=== PATIENT | female | born 1980 | race Caucasian/White ===

== ENCOUNTER → 2018-02-01 07:12 | Outpatient (CLI) | payer OTHER, SELFPAY ==
--- NOTE | 2018-02-01 07:16 | DI.US.S_ITS ---
PROCEDURE: US OB <= 14 WEEKS FETUS INDICATIONS: SIZE AND DATES OUTSIDE/PRIOR DATING DATA: Last menstrual period (LMP): 12/14/17. LMP-based estimated date of delivery (CUCO): 09/20/18. First dating scan (date and location): 02/08. Estimated date of delivery (CUCO) from first dating scan: 09/23/18. TECHNIQUE: Real-time scanning was performed of the fetus and maternal pelvic organs, with image documentation. Endovaginal scanning was also performed to better visualize the fetus and maternal ovaries. COMPARISON: None. FINDINGS: Embryo: Single living fetus is present with a crown-rump length 0.66 centimeter, 6 weeks 4 days. heart rate measures 115 beats. Measurement variability in dating: +/- 4 weeks by LMP, +/- 7 days by mean sac diameter (use before 6 weeks gestation if crown-rump length not able to be measured), +/- 5 days by crown-rump length (up to 8 weeks 6 days gestation), +/- 7 days by crown-rump length (up to 13 weeks 6 days gestation). Maternal organs: Ovaries unremarkable except for a presumed left corpus luteum. Limited images through the kidneys demonstrate no hydronephrosis. IMPRESSION: Single living intrauterine fetus with a gestational age of 6 weeks and 4 days by today's ultrasound measurements corresponding to an CUCO of 09/23/18, concordant with LMP as above Dictated by: Mesfin Kathleen M.D. on 02/01/2018 at 9:05 Approved by: Mesfin Kathleen M.D. on 02/01/2018 at 9:08
== END ==
PROVIDERS: Visit Provider Family Medicine
DX: Z34.92 Encounter for supervision of normal pregnancy, unspecified, second trimester (principal); Z3A.01 Less than 8 weeks gestation of pregnancy
CPT/HCPCS: 76801; 76817

== ENCOUNTER → 2018-05-08 07:19 | Outpatient (CLI) | payer OTHER, SELFPAY ==
--- NOTE | 2018-05-08 | DI.US.S_ITS ---
PROCEDURE: US OB >= 14 WEEKS FETUS INDICATIONS: SIZING OUTSIDE/PRIOR DATING DATA: Last menstrual period (LMP): 12/14/17. LMP-based estimated date of delivery (CUCO): 09/20/18. First dating scan (date and location): 02/01/18. Estimated date of delivery (CUCO) from first dating scan: 09/23/18, plus or -5 days. TECHNIQUE: Real-time scanning was performed of the fetus, with image documentation and biometric measurements. Endovaginal scanning: Not needed for this study COMPARISON: 02/01/18 OB ultrasound. FINDINGS: General: A single living intrauterine gestation is present. Presentation: Vertex. Placenta: Placental position is anterior, without previa. Amniotic fluid index: 15.2 cm, normal range is 5-24 cm. heart rate: 157 beats per minute. Maternal cervical canal: 3.3 cm long. Normal lower limit is 2.5 cm. biometrics: Biparietal diameter: 4.7 cm, 20 weeks 1 day Head circumference: 18.6 cm, 21 weeks 0 days Abdominal circumference: 15.8 cm, 20 weeks 6 days Femur length: 3.2 cm, 20 weeks 0 days Estimated gestational age from initial scan: 20 weeks 2 days Composite gestational age from present scan: 20 weeks 4 days Estimated weight and percentile: 362 g, 61st percentile Measurement variability for biometric dating: +/- 7 days from 14 weeks to 15 weeks 6 days gestation, +/- 10 days from 16 weeks to 21 weeks 6 days gestation, +/- 2 weeks from 22 weeks to 27 weeks 6 days gestation, +/- 3 weeks for 28 weeks gestation or later. weight reference: 4500 g or EFW >90/95% is considered macrosomia or large for gestational age. EFW <10% is small for gestational age. EFW 5% or less is considered intra-uterine growth restriction. Anatomic survey: Neuro: Ventricles are non-dilated at less than 10 mm. Cisterna magna is normal at 3-11 mm. Cerebellum is normal in size and morphology. Nuchal skin fold: Normal at less than 6 mm between 14-21 weeks gestational age. Face: Nose and lips, facial profile are normal. Spine: No evidence for spina bifida. Heart: 4-chambered heart is present, with normal ventricular outflow tracts. Diaphragm: Diaphragm is intact. Stomach: Left-sided stomach is present. Kidneys: No hydronephrosis. Normal is less than 5 mm in 2nd trimester, less than 7 mm in 3rd trimester. Cord: 3-vessel cord has orthotopic insertion. Bladder: Normal in size. Extremities: All 4 extremities identified. IMPRESSION: Appropriate interval growth, no anomaly seen. The delivery date is projected to be centered on 09/23/18, plus or -5 days. Dictated by: Saulo Rebollar M.D. on 05/08/2018 at 8:46 Approved by: Saulo Rebollar M.D. on 05/08/2018 at 8:49
== END ==
PROVIDERS: Visit Provider Family Medicine
DX: Z36.89 Encounter for other specified antenatal screening (principal); Z3A.20 20 weeks gestation of pregnancy
CPT/HCPCS: 76811

== ENCOUNTER 2018-08-14 07:18 | Outpatient (CLI) | payer OTHER, SELFPAY ==
--- NOTE | 2018-08-14 | DI.US.S_ITS ---
PROCEDURE: US OB LIMITED INDICATIONS: WEIGHT/GROWTH OUTSIDE/PRIOR DATING DATA: Last menstrual period (LMP): 12/14/17. LMP-based estimated date of delivery (CUCO): 09/20/18. First dating scan (date and location): 02/01/18. Estimated date of delivery (CUCO) from first dating scan: 09/23/18, plus or -5 days. TECHNIQUE: Real-time scanning was performed of the fetus, with image documentation. Endovaginal scanning: Not needed for this study. COMPARISON: Prior OB ultrasound studies from 02/01/18 and 05/08/18 were reviewed.. FINDINGS: A single living intrauterine gestation is present. Presentation: Vertex. Placenta: Placental position is fundal anterior, without previa. Amniotic fluid index: 13.0 cm, normal range is 5-24 cm. heart rate: 140 beats per minute. Maternal cervical canal: 3.7 cm long. Normal lower limit is 2.5 cm. Estimated gestational age from initial scan: 34 weeks 2 days. BIOMETRY: Prior study from 05/08/18 had shown normal biometry. The current study shows BPD 8.5 cm that correlates with 34 weeks 1 day gestational age and the head circumference of 32.7 cm correlates with 37 weeks 1 day. Abdominal circumference 28.7 cm correlates with 32 weeks 5 days and the femur length of 6.5 cm correlates with 33 weeks 4 day gestational age. The composite gestational age from today is 34 weeks 3 days and the expected age is 34 weeks 2 days. There has been appropriate interval growth. The current estimated weight is 2214 g, at the 23rd percentile for current gestational age. IMPRESSION: Vertex presentation, normal amniotic fluid, appropriate interval growth in terms of the gestational age from initial and subsequent OB ultrasound studies from 02/01/18 and 05/08/18, respectively. The delivery date remains projected to be centered on 09/23/18, plus or -5 days. The prior ultrasound from 05/08/18 had projected the weight to be at the 61st percentile for current gestational age at that time. The current study shows the weight to be estimated at the 23rd percentile at this time. With reference to the individual components of the biometry the abdominal circumference is somewhat reduced. Measurement variability at this stage of it is plus or -3 weeks (with the most accurate measurement from the first OB ultrasound). A followup biometry assessment likely is warranted given the relatively low abdominal circumference when compared to the prior original biometry from April of last year, in approximately 2 weeks. Dictated by: Saulo Rebollar M.D. on 08/14/2018 at 9:37 Approved by: Saulo Rebollar M.D. on 08/14/2018 at 9:55
== END 2018-08-14 17:23 | disposition home or self-care (01) ==
LOC: US 07:18
PROVIDERS: PCP Family Medicine; Visit Provider Family Medicine
DX: Z34.93 Encounter for supervision of normal pregnancy, unspecified, third trimester (principal); Z3A.34 34 weeks gestation of pregnancy
CPT/HCPCS: 59025; 76815; G0378

== ENCOUNTER 2018-08-21 17:14 | Outpatient (CLI) | payer OTHER, SELFPAY | END 2018-08-21 17:55 | disposition home or self-care (01) | LOC: OB 08-22 11:18 | PROVIDERS: PCP Family Medicine; Visit Provider Family Medicine | DX: O24.419 Gestational diabetes mellitus in pregnancy, unspecified control (principal); Z3A.35 35 weeks gestation of pregnancy | CPT/HCPCS: 59025; G0378; G0379 ==

== ENCOUNTER → 2018-08-24 09:49 | Outpatient (REF) | payer OTHER, SELFPAY | LOC: LAB 09:49 | PROVIDERS: PCP Family Medicine; Visit Provider Family Medicine | DX: Z34.80 Encounter for supervision of other normal pregnancy, unspecified trimester (principal) | CPT/HCPCS: 87081; 87147 ==

== ENCOUNTER 2018-08-28 17:18 | Outpatient (CLI) | payer OTHER, SELFPAY | END 2018-08-28 17:57 | disposition home or self-care (01) | LOC: LABOR 17:57 → OB 08-29 14:56 | PROVIDERS: PCP Family Medicine; Visit Provider Family Medicine | DX: O24.419 Gestational diabetes mellitus in pregnancy, unspecified control (principal); Z3A.36 36 weeks gestation of pregnancy | CPT/HCPCS: 59025; G0378; G0379 ==

== ENCOUNTER 2018-09-04 17:18 | Outpatient (CLI) | payer OTHER, SELFPAY | END 2018-09-04 18:02 | disposition home or self-care (01) | LOC: OB 09-05 11:45 | PROVIDERS: PCP Family Medicine; Visit Provider Family Medicine | DX: O24.419 Gestational diabetes mellitus in pregnancy, unspecified control (principal); Z3A.37 37 weeks gestation of pregnancy | CPT/HCPCS: 59025; G0378; G0379 ==

== ENCOUNTER 2018-09-11 17:21 | Outpatient (CLI) | payer OTHER, SELFPAY | END 2018-09-11 17:50 | disposition home or self-care (01) | LOC: OB 09-12 14:52 | PROVIDERS: PCP Family Medicine; Visit Provider Family Medicine | DX: O24.419 Gestational diabetes mellitus in pregnancy, unspecified control (principal); Z3A.38 38 weeks gestation of pregnancy | CPT/HCPCS: 59025; G0378; G0379 ==

== ENCOUNTER → 2018-09-20 07:21 | Outpatient (CLI) | payer OTHER, SELFPAY ==
--- NOTE | 2018-09-20 | DI.US.S_ITS ---
PROCEDURE: US OB LIMITED INDICATIONS: GESTATIONAL DIABETES OUTSIDE/PRIOR DATING DATA: Last menstrual period (LMP): 12/14/17. LMP-based estimated date of delivery (CUCO): 09/20/18. First dating scan (date and location): 02/01/18. Estimated date of delivery (CUCO) from first dating scan: 09/23/18. TECHNIQUE: Real-time scanning was performed of the fetus, with image documentation. COMPARISON: [facility], , OB LIMITED, 08/14/2018, 7:25. FINDINGS: A single living intrauterine gestation is present. Presentation: Vertex. Placenta: Placental position is anterior, without previa. Amniotic fluid index: 9.2 cm, normal range is 5-24 cm. heart rate: 175 beats per minute. Maternal cervical canal: Not measured Estimated gestational age from initial scan: 39 weeks 4 days Composite gestational age today 37 weeks 6 days The estimated weight 332 g 31st percentile BPD: 9.0 cm 36 weeks 2 days HC: 33.4 cm 38 weeks 2 days AC: 33.5 cm 37 weeks 3 days FL.: 7.7 cm 39 weeks 3 days IMPRESSION: 1. Single intrauterine with ultrasound CUCO 09/23/18. 2. weight is at the 31st percentile. 3. Expected normal interval growth. Dictated by: Flori Mcknight M.D. on 09/20/2018 at 9:42 Approved by: Flori Mcknight M.D. on 09/20/2018 at 9:45
== END ==
PROVIDERS: PCP Family Medicine; Visit Provider Family Medicine
DX: O24.419 Gestational diabetes mellitus in pregnancy, unspecified control (principal); Z3A.37 37 weeks gestation of pregnancy
CPT/HCPCS: 59025; 76815; 84112

== ENCOUNTER 2018-09-20 07:49 | Outpatient (CLI) | payer OTHER, SELFPAY | END 2018-09-20 08:45 | disposition home or self-care (01) | LOC: LABOR 08:16 → OB 12:57 | PROVIDERS: PCP Family Medicine; Visit Provider Family Medicine | DX: O24.419 Gestational diabetes mellitus in pregnancy, unspecified control (principal) | CPT/HCPCS: 59025; 84112; G0378; G0379 ==

== ENCOUNTER 2018-09-25 00:42 | Inpatient (IN) | payer OTHER, SELFPAY ==
[2018-09-25 00:46] VITALS: BP 139/89
[2018-09-25] MEDS: PENICILLIN G POTASSIUM 5,000,000 UNIT in DEXTROSE 5% IN WATER 250 ML IV (01:30)
[2018-09-25] MEDS: LACTATED RINGERS 1,000 ML 100 ML IV (01:30)
[2018-09-25 02:05] LABS: Add Manual Diff / Slide Review NO; Basophils Absolute Auto 100 /uL (0-100); Eosinophils Absolute Auto 100 /uL (0-450); Hematocrit 43.4 % (36-46); Hemoglobin 14.7 g/dL (12.0-16.0); Lymphocytes Absolute Auto 2200 /uL (1100-4500); Mean Corpuscular HGB Conc 33.9 % (30-36); Mean Corpuscular Volume 91.6 fL (80-100); Monocytes Absolute Auto 400 /uL (0-900); Neutrophils Absolute Auto 5300 /uL (1500-7000); Platelet Count 189 X10^3/uL (150-400); Red Blood Cell Count 4.74 X10^6/uL (4.0-5.2); Red Cell Distribution Width 13.9 % (11.6-14.8)
[2018-09-25] MEDS: OXYTOCIN 10 UNIT/ML VIAL IM (03:50)
--- NOTE | 2018-09-25 04:29 | P.PCNOB_ITS ---
Events: Gestational Diabetes Delivery date: 09/25/18 Intrapartal events: Precipitous Labor < 3 hours Cervical ripening method: none Induction method: none Delivery monitor: external FHT and external uterine Route of delivery: L&D Laceration Description: Periurethral - 1st Degree and Perineal - 1st Degree Delivery repair: chromic Estimated blood loss (mL): 250 Anesthesia type: None Complications: meconium Narrative: Identifying data: This is a pleasant 38-year-old at 40 and 2 7 weeks estimated gestational age based on an EDC of 09/23/2018 based on LMP and 1st trimester ultrasound. was complicated by gestational diabetes that was diet controlled and she did excellent job. Patient was GBS positive. Patient was Rh negative and received 1 dose of RhoGAM. Patient presented in active labor. Labor started with spontaneous rupture membranes which occurred 3 hr and 15 min prior to delivery and there was meconium fluid. Stage I lasted 1 hr and 35 min patient presented to labor and delivery at 1:00 a.m. on the date of delivery. Patient was having intermittent contractions that were mild and she was able to sleep through and then had spontaneous rupture of membranes at 12:00 a.m. on the date of delivery. The fluid was meconium stained. She presented to labor and delivery and received 1 dose of IV penicillin at 1:30 a.m.. She began having more painful contractions at approximately 1:30 a.m. and was felt to be in active labor at that time. She had rapid progression and was found to be complete at 3:05 a.m.. External tocometer heart monitor were used throug hout this stage. Baseline heart rate in the 130s and 140s with accelerations and moderate variability representing a category 1 tracing. I was contacted at 3:00 a.m. the patient was 6 cm and then several min later that she was complete. patient tolerated the contractions well and did not have any anesthesia. Stage II: 10 min patient was noted to be complete and pushed approximately 2 pushes and baby was delivered via normal spontaneous vaginal delivery. There was a nuchal cord that was not reduced on the perineum. Baby was placed on mom's chest and at that point approximately 2 min after delivery I arrived. Apgars were 7 at 1 min and 9 at 5 min. Baby was very quiet and was taken to the warmer where heart rate was excellent and tone was excellent and color was excellent and baby was very quiet just not crying but normal respiratory rate and appropriate O2 sat. Baby was then taken back to mom. Stage III: 15 min normal spontaneous vaginal delivery of an intact mildly calcified placenta with a near central cord insertion. Three-vessel cord was present. 10 min use of Pitocin was given IM. There was a very small first-degree perineal laceration and a superior urethral very small 0.5 cm laceration both of which were repaired with 3 0 chromic in usual fashion. At the time of this dictation both mom and baby are in stable condition Plan for aftercare: routine care
[2018-09-25] MEDS: IBUPROFEN 600 MG TABLET PO ×4 (04:30→23:03)
--- NOTE | 2018-09-25 04:39 | P.HPOB_ITS ---
OB HPI History of Present Condition Chief complaint: evaluation of labor Narrative: Christi Alarcon is a 38 year old female at 40 and 2 7 weeks estimated gestational age based on an EDC of 09/23/2018 presents to Labor and delivery with spontaneous rupture membranes of meconium-stained fluid at 12:00 a.m. with irregular mild uterine contractions. Patient has had intermittent contractions that have not been severe and no other concerns. Past medical history is remarkable for 1. hypothyroidism 2. anxiety 3. Depression 4. Cystic fibrosis gene carrier medications: Synthroid sertraline vitamins allergies: No known drug allergies past surgical history 12 ACL repair, right health related behavior: No alcohol, drugs or tobacco past OB history: 1. December 15, 2015 at 42 weeks gestation with premature rupture membranes and Pitocin inducted labor which lasted 10 hr at [facility] normal spontaneous vaginal delivery of a viable male weighing 7 lb 8 oz. No epidural or anesthesia. care was begun early on. LMP 12/14/2017 gave the EDC of 09/20/2018 and 6 week ultrasound gave a due date of 09/23/2018 which was the due date that we went with. Patient had approximately 12 visits. Patient gained approximately 10 lb. Blood pressures were excellent. Patient had gestational diabetes but excellent diet control. Weekly NSTs were done which were all normal. Patient refuses received flu shot 04/19/2018 and Tdap 07/06/2018 and RhoGAM. O negative, antibody negative, hepatitis-B, hepatitis-C, chlamydia, gonorrhea, HIV all negative. Sequential screen negative and cell free DNA negative. Group B strep was positive. Pap smear is normal. Syphilis test negative. Thyroid dose was increased during . Assessment and plan: Precipitous normal spontaneous vaginal delivery. Please see delivery summary routine care status post 1 dose of penicillin for GBS positive status O negative will continue Synthroid and sertraline Evaluation Evaluation Laboratory results: Laboratory Tests 09/25/18 09/25/18 01:30 01:30 WBC 8.0 RBC 4.74 Hgb 14.7 Hct 43.4 MCV 91.6 MCH 31.0 MCHC 33.9 RDW 13.9 Plt Count 189 Neut % (Auto) 66.0 Lymph % (Auto) 27.0 [place] % (Auto) 5.0 Eos % (Auto) 1.0 L Baso % (Auto) 1.0 Neut # (Auto) 5300 Lymph # (Auto) 2200 [place] # (Auto) 400 Eos # (Auto) 100 Baso # (Auto) 100 Blood Type O Negative Meds Allergies Allergy/AdvReac Type Severity Reaction Status Date / Time No Known Drug Allergies Allergy Verified 09/25/18 04:21 Review of Systems Review of Systems no head aches, no abdominal pain other than contractions. No change in discharge except for spontaneous rupture membranes at 12:00 a.m. on date of delivery with meconium-stained fluid. No swelling. All systems reviewed & are unremarkable except as noted in HPI and below Exam Narrative Exam Narrative: Afebrile, vital signs are stable HEENT is unremarkable neck: Supple chest: Clear to auscultation cor: Regular rate and rhythm without murmur abdomen: Positive bowel sounds, soft extremities: No edema DTRs are intact Objective Labs Result Diagrams: 09/25/18 01:30 Labs: Laboratory Results - last 24 hr 09/25/18 09/25/18 01:30 01:30 WBC 8.0 RBC 4.74 Hgb 14.7 Hct 43.4 MCV 91.6 MCH 31.0 MCHC 33.9 RDW 13.9 Plt Count 189 Neut % (Auto) 66.0 Lymph % (Auto) 27.0 [place] % (Auto) 5.0 Eos % (Auto) 1.0 L Baso % (Auto) 1.0 Neut # (Auto) 5300 Lymph # (Auto) 2200 [place] # (Auto) 400 Eos # (Auto) 100 Baso # (Auto) 100 Blood Type O Negative
[2018-09-25] MEDS: SERTRALINE 50 MG TABLET 150 MG PO (08:36)
[2018-09-25] MEDS: PRENATAL VIT,CALC/IRON/FOLIC 1 TABLET 1 TAB PO (08:36)
[2018-09-25] MEDS: LEVOTHYROXINE 100 MCG TABLET 200 MCG PO (08:36)
[2018-09-25] MEDS: DOCUSATE 250 MG CAPSULE PO (17:38)
[2018-09-25 23:03] VITALS: TEMP 37
[2018-09-26 05:07] VITALS: TEMP 37
[2018-09-26] MEDS: IBUPROFEN 600 MG TABLET PO ×2 (05:07→10:38)
[2018-09-26 07:01] LABS: Add Manual Diff / Slide Review NO; Basophils Absolute Auto 0 /uL (0-100); Basophils Percent Auto 0.4 % (0-2); Eosinophils Absolute Auto 100 /uL (0-450); Hematocrit 41.2 % (36-46); Lymphocytes Absolute Auto 2500 /uL (1100-4500); Lymphocytes Percent Auto 26.7 % (25-40); Mean Corpuscular HGB Conc 33.9 % (30-36); Mean Corpuscular Hemoglobin 31.5 PG (26-34); Mean Corpuscular Volume 92.9 fL (80-100); Monocytes Absolute Auto 500 /uL (0-900); Monocytes Percent Auto 4.8 % (3-14); Neutrophils Absolute Auto 6300 /uL (1500-7000); Neutrophils Percent Auto 67.1 % (50-75); Platelet Count 189 X10^3/uL (150-400); Red Blood Cell Count 4.43 X10^6/uL (4.0-5.2); White Blood Cell Count 9.4 X10^3/uL (4.5-11.0)
--- NOTE | 2018-09-26 08:33 | PM.OBDS.1 ---
Discharge Providers Date of admission: 09/25/18 00:42 Discharge Date: 09/26/18 Primary care physician: Ginger Rodriguez MD Consults: 09/25/18 04:16 Consult to Nightclub Manager Routine Comment: Discharge provider: Ginger Rodriguez MD Summary Time Spent with Patient Total time spent providing and/or coordinating discharge services: 20 minutes Patient presented to hospital in active labor at term and had precipitous normal spontaneous vaginal delivery. There were no complications. Mom was GBS positive and 1 dose of penicillin was given. Mom was Rh negative and baby a positive so RhoGAM was given. Patient was discharged home in stable condition follow-up with Dr. Rodriguez in 2 weeks discharge medications include vitamins, Colace [id number], Motrin [id number], Zoloft 150 mg daily and levothyroxine 200 mcg daily Objective ECG Impression: afebrile, vital signs are stable HEENT unremarkable neck: Supple chest: Clear to auscultation bilaterally cor: Regular rate and rhythm without murmur abdomen: Uterus is firm and below the umbilicus extremities: No edema and pulses intact Labs Result Diagrams: 09/26/18 06:25 Labs: Laboratory Results - last 24 hr 09/26/18 06:25 WBC 9.4 RBC 4.43 Hgb 14.0 Hct 41.2 MCV 92.9 MCH 31.5 MCHC 33.9 RDW 14.0 Plt Count 189 Neut % (Auto) 67.1 Lymph % (Auto) 26.7 [place] % (Auto) 4.8 Eos % (Auto) 1.0 L Baso % (Auto) 0.4 Neut # (Auto) 6300 Lymph # (Auto) 2500 [place] # (Auto) 500 Eos # (Auto) 100 Baso # (Auto) 0 Discharge Plan Discharge Plan Patient Disposition: Home Discharge Med Rec/Prescriptions Prescriptions: Continued levothyroxine 200 mcg Capsule 200 mcg PO DAILY RF: 0 Follow up/Referrals: Ginger Rodriguez MD [Primary Care Provider] - Provider Discharge Instructions Diet: Diet as Tolerated Activity: pelvic rest no heavy lifting Discharge Data Primary Care Provider: Gigner Rodriguez Attending Provider: Ginger Rodriguez Admit Date/Time: 09/25/18 00:42
--- NOTE | 2018-09-26 08:36 | P.DS_ITS ---
Discharge Providers Date of admission: 09/25/18 00:42 Discharge Date: 09/26/18 Primary care physician: Ginger Rodriguez MD Consults: 09/25/18 04:16 Consult to Cost Control Supervisor Routine Comment: Discharge provider: Ginger Rodriguez MD Summary Time Spent with Patient Total time spent providing and/or coordinating discharge services: 20 minutes Patient presented to hospital in active labor at term and had precipitous normal spontaneous vaginal delivery. There were no complications. Mom was GBS positive and 1 dose of penicillin was given. Mom was Rh negative and baby a positive so RhoGAM was given. Patient was discharged home in stable condition follow-up with Dr. Rodriguez in 2 weeks discharge medications include vitamins, Colace [id number], Motrin [id number], Zoloft 150 mg daily and levothyroxine 200 mcg daily Objective ECG Impression: afebrile, vital signs are stable HEENT unremarkable neck: Supple chest: Clear to auscultation bilaterally cor: Regular rate and rhythm without murmur abdomen: Uterus is firm and below the umbilicus extremities: No edema and pulses intact Labs Result Diagrams: 09/26/18 06:25 Labs: Laboratory Results - last 24 hr 09/26/18 06:25 WBC 9.4 RBC 4.43 Hgb 14.0 Hct 41.2 MCV 92.9 MCH 31.5 MCHC 33.9 RDW 14.0 Plt Count 189 Neut % (Auto) 67.1 Lymph % (Auto) 26.7 [place] % (Auto) 4.8 Eos % (Auto) 1.0 L Baso % (Auto) 0.4 Neut # (Auto) 6300 Lymph # (Auto) 2500 [place] # (Auto) 500 Eos # (Auto) 100 Baso # (Auto) 0 Discharge Plan Discharge Plan Patient Disposition: Home Discharge Med Rec/Prescriptions Prescriptions: Continued levothyroxine 200 mcg Capsule 200 mcg PO DAILY RF: 0 Follow up/Referrals: Ginger Rodriguez MD [Primary Care Provider] - Provider Discharge Instructions Diet: Diet as Tolerated Activity: pelvic rest no heavy lifting Discharge Data Primary Care Provider: Ginger Rodriguez Attending Provider: Ginger Rodriguez Admit Date/Time: 09/25/18 00:42
[2018-09-26 08:58] VITALS: BP 109/76; PULSE 62; TEMP 37
[2018-09-26] MEDS: RHO(D) IMMUNE GLOBULIN 1,500 UNIT SYRINGE 1500 UNIT IM (10:37)
== END 2018-09-26 11:18 | disposition home or self-care (01) | DRG 807 ==
PROVIDERS: Admitting Provider Family Medicine; PCP Family Medicine; Visit Provider Family Medicine
DX: O48.0 Post-term pregnancy (principal); Z37.0 Single live birth; O62.3 Precipitate labor; Z3A.40 40 weeks gestation of pregnancy; O77.0 Labor and delivery complicated by meconium in amniotic fluid; O24.420 Gestational diabetes mellitus in childbirth, diet controlled; O69.1XX0 Labor and delivery complicated by cord around neck, with compression, not applicable or unspecified
CPT/HCPCS: 36415; 59025; 59050; 84112; 85025; 85461; 86850; 86900; 86901; 96360; G0379; J2540; J2590; J2790

== ENCOUNTER 2019-03-12 20:52 | Emergency (ER) | payer OTHER, SELFPAY ==
[2019-03-12 21:00] VITALS: BP 125/81; PULSE 84; RESP 18; TEMP 37.2; O2SAT 96
--- NOTE | 2019-03-12 21:34 | ED.SKABFB ---
HPI - Skin/Abscess/Foreign Bdy General Chief complaint: Skin/Abscess/Foreign Body Stated complaint: LEFT EYE INFECTION Time Seen by Provider: 03/12/19 21:03 Source: patient Mode of arrival: ambulatory Limitations: no limitations History of Present Illness HPI narrative: 38-year-old female nonsmoker with history of hypothyroidism presents with gradually worsening painful, erythematous swelling over left eye in the absence of injury. She states that started eye there is a bug bite or a small pimple in over the past day or to has swelled rapidly. She denies any pain behind her eye and no change in her vision. She has had no drainage denies any fever or chills. She denies any known history of MRSA. MD complaint: abscess/boil Onset (ago): day(s) Tetanus up to date: yes Location: face Severity: moderate Quality: aching Pain Consistency: constant Relieving factors: none Exacerbating factors: none Context: none Associated symptoms: denies other symptoms Treatments prior to arrival: none Related Data Home Medications Medication Instructions Recorded Confirmed levothyroxine 200 mcg PO DAILY 09/25/18 09/25/18 Previous Rx's Medication Instructions Recorded doxycycline hyclate 100 mg PO BID #20 tab 03/12/19 Allergies Allergy/AdvReac Type Severity Reaction Status Date / Time No Known Drug Allergies Allergy Verified 03/12/19 21:15 Review of Systems Constitutional Denies chills, Denies fever(s), Denies lethargy and Denies weakness Eyes Denies change in vision, Denies eye discharge, Denies irritation and Denies loss of vision ENT Ears, Nose, Mouth, and Throat: Denies change in voice, Denies neck pain and Denies sore throat Cardiovascular Denies chest pain, Denies irregular heart rhythm, Denies lightheadedness, Denies palpitations, Denies dyspnea, Denies dyspnea on exertion and Denies orthopnea Respiratory Denies cough, Denies dyspnea, Denies dyspnea on exertion and Denies wheezing Gastrointestinal Gastrointestinal: Denies abdominal pain, Denies change in bowel habits, Denies diarrhea, Denies nausea and Denies vomiting Genitourinary Denies hematuria, Denies flank pain, Denies urinary incontinence and Denies urinary urgency Musculoskeletal Denies neck pain Integumentary/Breasts Denies pruritus, Reports erythema, Denies rash, Reports skin pain, Reports skin swelling and Denies wounds Neurologic Denies confusion, Denies loss of vision and Denies weakness Psychiatric Denies anxiety, Denies confusion, Denies depression, Denies homicidal ideation and Denies suicidal ideation Endocrine Denies palpitations Hematologic/Lymphatic Denies easy bruising Allergic/Immunologic Denies wheezing PFSH Social History Smoking Status: Never smoker Social History Smoking Status: Never smoker Exam Narrative Exam Narrative: GEN: 38-year-old female appears stated age. AOx3 and in mild distress HEAD: painful, edematous, erythematous L brow with minimal lid involvement. EYES: Pupils are equal, round, and reactive to light and accommodation. Extraoccular muscles are intact bilaterally, ROM elicits no pain. There is no subconjunctival hemorrhage or exudate. CHEST: Lungs are clear to auscultation bilaterally and free of wheezes, rales, or rhonchi. Heart rate is regular rhythm, there are no murmurs, clicks, rubs, or gallops. There is no chest wall tenderness. ABD: Abdomen is soft and nontender. There is no guarding or rebound. Bowel sounds are normal in all 4 quadrants. There is no mass or organomegaly. EXT: Full painless ROM of all extremities with no loss of sensation or strength. SKIN: Warm, pink, and dry. No erythema or rash on exposed visible skin other than the above. Cellulitic region demonstrates some induration and no fluctuance. Initial Vital Signs Initial Vital Signs: Vital Signs Temperature 98.9 F 03/12/19 21:00 Pulse Rate 84 03/12/19 21:00 Respiratory Rate 18 03/12/19 21:00 Blood Pressure 125/81 03/12/19 21:00 Pulse Oximetry 96 03/12/19 21:00 Course Course Narrative: bedside US demonstrates a very very small possible fluid collection, very unlikely that I/D would be successful. Orders Ordered: Discontinued Medications Doxycycline Hyclate (Vibramycin) 100 mg PO NOW ONE Stop: 03/12/19 21:43 Last Admin: 03/12/19 21:56 Dose: 100 mg Vital Signs - 8 hr 03/12/19 21:00 03/12/19 22:27 Temperature 98.9 F Pulse Rate 84 65 Respiratory Rate 18 16 Blood Pressure 125/81 104/76 Pulse Oximetry 96 MDM - Skin/Abscess/Foreign Bdy MDM Narrative Medical decision making narrative: Cellulitis considered the most likely diagnosis given her history and physical exam. Patient has no visual change in denies exacerbation of pain with extraocular motions, therefore orbital cellulitis thought less likely. Extensive discussion with the patient regarding the possibility that this becomes a drainable abscess but not currently. Additionally patient is breast-feeding and we discussed various antibiotic options and agree the doxycycline makes the most sense so we can cover staph, strep, and MRSA. She understands that it is ill-advised to breastfeed for the duration of the use of these antibiotics and for 5 days after Discharge Plan Departure Patient Disposition: Home Clinical Impression: Cellulitis Qualifiers: Site of cellulitis: periorbital Laterality: left Qualified Code(s): L03.213 - Periorbital cellulitis Discharge Date/Time: 03/12/19 22:15 Interventions: ED Discharge Assessment Last Done: 03/12/19 22:27 Instructions: DI for Cellulitis -- Adult Activity Restrictions/Additional Instructions: *You have been diagnosed with [acute facial cellulitis with possible very small abscess (too small for drainage)] *What to do: *Take medications as directed: As discussed, please be aware that breast feeding is ill-advised while taking doxycycline and recommendations are to ?pump and dump ?until 5 days after you complete the antibiotic course. DOXYCYCLINE has been sent to [facility] at your request *Follow up with your primary care provider in 2-3 days, call for an appointment. Let them know you were seen in the Emergency Department and that we ask that you be seen in follow up *Return to ER if you should have any new, worsening or concerning symptoms Prescriptions: New doxycycline hyclate 100 mg tablet 100 mg PO BID Qty: 20 RF: 0 No Action levothyroxine 200 mcg Capsule 200 mcg PO DAILY RF: 0 Referrals: Ginger Rodriguez MD [Primary Care Provider] -
[2019-03-12] MEDS: DOXYCYCLINE HYCLATE 100 MG TABLET PO (21:56)
[2019-03-12 22:27] VITALS: BP 104/76; PULSE 65; RESP 16
== END 2019-03-12 22:15 | disposition home or self-care (01) ==
PROVIDERS: Emergency Provider Emergency Medicine; PCP Family Medicine
DX: L03.213 Periorbital cellulitis (principal)
CPT/HCPCS: 99282; 99283

== ENCOUNTER 2019-03-22 08:15 | Outpatient (RCR) | payer OTHER, SELFPAY ==
--- NOTE | 2019-01-02 18:14 | PT.OIE ---
Current Diagnoses Stress incontinence (female) (male) (12/28/18) Encounter for routine follow-up (12/28/18) Provider Visit Care Team Role Provider Type Ginger Rodriguez MD Attending Provider Physician Primary Care Provider Specialty: Family Practice Address: [address] [place] [address], [id number] Email: Physical Therapy Initial Evaluation PT-OP-A Visit Information Start: 12/31/18 12:44 Freq: Status: Active Protocol: Document 12/28/18 15:15 [facility] (Rec: 12/31/18 12:47 [facility] [email or web address]) Out-Patient Physical Therapy Visit Information Visit Information Visit Type Initial Evaluation Visit Note 38 year old female 3 months post from a vaginal delivery. She has a history of stress incontinence worse after her 1st child was born in the summer. She did PT during that time and it really helped her. She would like to strengthen her pelvic floor to be able to return to running activities. Visit Start Time 15:15 Visit Stop Time 16:00 Total Visit Minutes 45 Visit Number 1 Evaluation Information Evaluation Date 12/28/18 PT-OP-B Current Condition Start: 12/31/18 12:44 Freq: Status: Active Protocol: Document 12/28/18 15:15 [facility] (Rec: 01/02/19 18:13 [facility] [id number]) Current Condition History of Current Condition Onset Date summer Current Complaints pelvic floor weakness with urinary stress incontinence History of Current Condition 38 year old female who began experiencing increased symptms of urinary stress incontinence after her 1st child was born in 2015. She did PT after this time and notes improvement in her symptoms. She is now 3 months from her second vaginal delivery and is noting increased symptoms of leakage with running, jumping, and sneezing. She would like help strengthening her pelvic floor in this period to decrease symptoms and jermaine able to return to exercise activities and running. Treatment Goals Patient/Caregiver Goals Goals include being able to return to exercise activities and running without leakage, PT-OP-I Pelvic Floor Start: 12/31/18 12:44 Freq: Status: Active Protocol: Document 12/28/18 15:15 [facility] (Rec: 01/02/19 18:13 [facility] [id number]) Pelvic Floor Assessment Urine Pelvic Floor Surgery No Other Urinary Symptoms urinary leakage with cough, sneeze, and jump Leakage Size Medium Leakage Cause Cough Exercise Lifting Sneeze Other Leakage Causes running Leaks Per Day 1 leak per week Voiding Frequency 2-3 hours Nocturia 1xm Urine Pad Type Panty Liner Pelvic Clock Pelvic Clock 12-3 Atrophy Pelvic Clock 3-6 Atrophy Pelvic Clock 6-9 Atrophy Pelvic Clock 9-12 Atrophy Pelvic Clock Other left lateral wall shows the most weakness SEMG (uV) Baseline 0 10 Second Contraction 7.1 Recruitment Pattern Fair Relaxation Fair Holding Fair Stability of Hold Fair SEMG Stability of Rest Good Contraction Ability Voluntary Contraction Weak Voluntary Relaxation Weak Manual Muscle Testing Left 1 Manual Muscle Testing Right 2 Manual Muscle Testing Anterior 2 Manual Muscle Testing Posterior 3 Muscle Endurance (Seconds) 5 PT-OP-Q Treatments Start: 12/31/18 12:44 Freq: Status: Active Protocol: Document 12/28/18 15:15 [facility] (Rec: 01/02/19 18:13 [facility] [id number]) Therapeutic Exercises Supine Exercises 1 Supine Exercise Name EMG biofeedback with pelvic floor long holds Side bilateral Comments Neuromuscular education on pelvic floor facilitation PT-OP-T Assessment and Plan Start: 12/31/18 12:44 Freq: Status: Active Protocol: Document 12/28/18 15:15 [facility] (Rec: 01/02/19 18:13 [facility] [id number]) Physical Therapy Assessment Rehab Potential Rehabilitation Potential Excellent Evaluation Complexity Number of Personal Factors/Comorbidities 0 Number of Body Systems Impaired 1-2 Clinical Presentation at Evaluation Stable Impairments Impairments Strength Tone Other Impairments urinary stress incontinence Goals Four Impairment guarding of the posterior wall of the levator ani and difficulty relaxing Short Term Goal (STG) Decreased guarding of the posterior wall of the levator ani and Christi is able to fully relax her pelvic floor in 5 seconds or less following a contraction. Three Impairment Decreased endurance of the pelvic floor Straddle Carrier Operator Goal (LTG) Christi is able to sustain a pelvic floor contraction in supine for 10 seconds or greater in supine and in standing LTG Duration 8 weeks Two Impairment Weakness of the levator ani Straddle Carrier Operator Goal (LTG) Improve strength of the levator ani from 2/5 MMT to 4/ 5 MMT or better for improved support of the bladder LTG Duration 8 weeks + One Impairment Urinary stress incontinence Short Term Goal (STG) Christi is not leaking with cough, sneeze, or laugh STG Duration 4-6 weeks Straddle Carrier Operator Goal (LTG) Christi is able to return to light running without leakage LTG Duration 8 weeks + Assessment Summary Assessment Christi presents to physical therapy today with symptoms of urinary stress incontinence s /p vaginal delivery. She is approximately 3 months post with her second baby. Christi reports she has always been week in her pelvic floor and had some symptoms of urinary stress incontinence but her symptoms worsened after her first baby was born in the summer of 2015. She did PT at this time for pelvic floor strengthening and she notes it helped her and she was able to return to running without leakage. After having her baby Christi reports she is leaking again and she seeks treatment to improve stability and eliminate leakage. Her goal is to be able to run again without leakage. With examination today Christi is weak in all parts of the levator ani with the left lateral wall being the most difficult to contract . She has difficulty relaxing the posterior wall and is tighter in this region. Her endurance is limited and it takes her a bit to fully relax her pelvic floor on EMG biofeedback back to baseline. Treatment will emphasize posture and reducing tightness in the low back from to improve anterior pelvic floor facilitation, endurance training and progressing to functional strengthening in upright positions. EMG biofeedback and Neuro muscular electrical stimulation will be used to help facilitate pelvic floor contractions. Vivi was started on EMG biofeedback today and she tolerated this well with a average of 7.1 uv for long holds and max of 13.2 uv. She is a good candidate for pelvic floor PT Physical Therapy Plan Frequency and Duration Frequency of Treatment 1x/Week Duration of Treatment 8 weeks Plan of Care Start Date 12/28/18 Plan of Care End Date 02/22/19 Therapeutic Interventions Therapeutic Interventions Home Exercise Program Neuromuscular Re-education Patient/Caregiver Education Self-Care/Home Management Therapeutic Exercises Modalities Biofeedback Electric Stimulation Next Visit Focus/Plan Next Note Type Treatment Note Next Visit Plan [place] of NMES for the pelvic floor next visit and progress pelvic floor facilitation on EMG biofeedback. Begin looking at low back length, posture, and pelvic alignment.
--- NOTE | 2019-01-04 17:20 | PT.OTN ---
Current Diagnoses Stress incontinence (female) (male) (01/04/19) Encounter for routine follow-up (01/04/19) Physical Therapy Treatment Note PT-OP-A Visit Information Start: 12/31/18 12:44 Freq: Status: Active Protocol: Document 01/04/19 17:14 [facility] (Rec: 01/04/19 17:20 [facility] [email or web address]) Out-Patient Physical Therapy Visit Information Visit Information Visit Type Treatment Note Visit Start Time 13:45 Visit Stop Time 14:30 Total Visit Minutes 45 Visit Number 2 PT-OP-B Current Condition Start: 12/31/18 12:44 Freq: Status: Active Protocol: Document 12/28/18 15:15 [facility] (Rec: 01/02/19 18:13 [facility] [id number]) Current Condition History of Current Condition Onset Date summer Current Complaints pelvic floor weakness with urinary stress incontinence History of Current Condition 38 year old female who began experiencing increased symptms of urinary stress incontinence after her 1st child was born in 2015. She did PT after this time and notes improvement in her symptoms. She is now 3 months from her second vaginal delivery and is noting increased symptoms of leakage with running, jumping, and sneezing. She would like help strengthening her pelvic floor in this period to decrease symptoms and jermaine able to return to exercise activities and running. Treatment Goals Patient/Caregiver Goals Goals include being able to return to exercise activities and running without leakage, PT-OP-C Subjective Start: 12/31/18 12:44 Freq: Status: Active Protocol: Document 01/04/19 17:14 [facility] (Rec: 01/04/19 17:20 [facility] [email or web address]) OP-PT Subjective Patient Comments Patient Comments Christi reports she has been working on her exercises. Becomming easier to recruit her pelvic floor. It is more difficult to relax and hold the contraction feels hard PT-OP-I Pelvic Floor Start: 12/31/18 12:44 Freq: Status: Active Protocol: Document 12/28/18 15:15 [facility] (Rec: 01/02/19 18:13 [facility] [id number]) Pelvic Floor Assessment Urine Pelvic Floor Surgery No Other Urinary Symptoms urinary leakage with cough, sneeze, and jump Leakage Size Medium Leakage Cause Cough Exercise Lifting Sneeze Other Leakage Causes running Leaks Per Day 1 leak per week Voiding Frequency 2-3 hours Nocturia 1xm Urine Pad Type Panty Liner Pelvic Clock Pelvic Clock 12-3 Atrophy Pelvic Clock 3-6 Atrophy Pelvic Clock 6-9 Atrophy Pelvic Clock 9-12 Atrophy Pelvic Clock Other left lateral wall shows the most weakness SEMG (uV) Baseline 0 10 Second Contraction 7.1 Recruitment Pattern Fair Relaxation Fair Holding Fair Stability of Hold Fair SEMG Stability of Rest Good Contraction Ability Voluntary Contraction Weak Voluntary Relaxation Weak Manual Muscle Testing Left 1 Manual Muscle Testing Right 2 Manual Muscle Testing Anterior 2 Manual Muscle Testing Posterior 3 Muscle Endurance (Seconds) 5 PT-OP-Q Treatments Start: 12/31/18 12:44 Freq: Status: Active Protocol: Document 01/04/19 17:14 [facility] (Rec: 01/04/19 17:20 [facility] [email or web address]) Therapeutic Exercises Supine Exercises 3 Supine Exercise Name templates for coordination and pelvic floor eccentric lowering 2 Supine Exercise Name ball squeeze 1 Supine Exercise Name EMG biofeedback with pelvic floor long holds Side bilateral Comments Neuromuscular education on pelvic floor faciliation Sidelying Exercises 1 Sidelying Exercise Name sidelying clam shell Reps/Minutes 3 x 10 reps Neuro Re-Education Treatment Other Activities 2 Details eccentric control in quadraped and supine Comments TA and pelvic floor 1 Details NMES for pelvic floor recruitment PT-OP-T Assessment and Plan Start: 12/31/18 12:44 Freq: Status: Active Protocol: Document 01/04/19 17:14 [facility] (Rec: 01/04/19 17:20 [facility] [email or web address]) Physical Therapy Assessment Assessment Summary Assessment Tolerated NMES well today and able to feel left greater than right sided contraction. Average on EMG biofeedback is 11.3 with max of 29uv. Improved recruitment. I did give the home rental form to Christi for home estim rental as she may benefit from a month rental Physical Therapy Plan Frequency and Duration Frequency of Treatment 1x/Week Duration of Treatment 8 weeks Plan of Care Start Date 12/28/18 Plan of Care End Date 02/22/19 Therapeutic Interventions Therapeutic Interventions Home Exercise Program Neuromuscular Re-education Patient/Caregiver Education Self-Care/Home Management Therapeutic Exercises Modalities Biofeedback Electric Stimulation Next Visit Focus/Plan Next Note Type Treatment Note Next Visit Plan Review established exercises and progress as tolerated
--- NOTE | 2019-01-24 12:00 | PT.OTN ---
Current Diagnoses Stress incontinence (female) (male) (01/24/19) Encounter for routine follow-up (01/24/19) Physical Therapy Treatment Note PT-OP-A Visit Information Start: 12/31/18 12:44 Freq: Status: Active Protocol: Document 01/24/19 09:00 [facility] (Rec: 01/24/19 09:35 [facility] [id number]) Out-Patient Physical Therapy Visit Information Visit Information Visit Type Treatment Note Visit Start Time 09:00 Visit Stop Time 09:45 Total Visit Minutes 45 Visit Number 3 PT-OP-B Current Condition Start: 12/31/18 12:44 Freq: Status: Active Protocol: Document 12/28/18 15:15 [facility] (Rec: 01/02/19 18:13 [facility] [id number]) Current Condition History of Current Condition Onset Date summer Current Complaints pelvic floor weakness with urinary stress incontinence History of Current Condition 38 year old female who began experiencing increased symptms of urinary stress incontinence after her 1st child was born in 2015. She did PT after this time and notes improvement in her symptoms. She is now 3 months from her second vaginal delivery and is noting increased symptoms of leakage with running, jumping, and sneezing. She would like help strengthening her pelvic floor in this period to decrease symptoms and jermaine able to return to exercise activities and running. Treatment Goals Patient/Caregiver Goals Goals include being able to return to exercise activities and running without leakage, PT-OP-C Subjective Start: 12/31/18 12:44 Freq: Status: Active Protocol: Document 01/24/19 09:00 [facility] (Rec: 01/24/19 09:35 [facility] [id number]) OP-PT Subjective Patient Comments Patient Comments Christi reports she has not really been pushing exercises (running jumping) but overall has been having an less symptoms when she has to run after or lift her toddler. PT-OP-I Pelvic Floor Start: 12/31/18 12:44 Freq: Status: Active Protocol: Document 12/28/18 15:15 [facility] (Rec: 01/02/19 18:13 [facility] [id number]) Pelvic Floor Assessment Urine Pelvic Floor Surgery No Other Urinary Symptoms urinary leakage with cough, sneeze, and jump Leakage Size Medium Leakage Cause Cough Exercise Lifting Sneeze Other Leakage Causes running Leaks Per Day 1 leak per week Voiding Frequency 2-3 hours Nocturia 1xm Urine Pad Type Panty Liner Pelvic Clock Pelvic Clock 12-3 Atrophy Pelvic Clock 3-6 Atrophy Pelvic Clock 6-9 Atrophy Pelvic Clock 9-12 Atrophy Pelvic Clock Other left lateral wall shows the most weakness SEMG (uV) Baseline 0 10 Second Contraction 7.1 Recruitment Pattern Fair Relaxation Fair Holding Fair Stability of Hold Fair SEMG Stability of Rest Good Contraction Ability Voluntary Contraction Weak Voluntary Relaxation Weak Manual Muscle Testing Left 1 Manual Muscle Testing Right 2 Manual Muscle Testing Anterior 2 Manual Muscle Testing Posterior 3 Muscle Endurance (Seconds) 5 PT-OP-Q Treatments Start: 12/31/18 12:44 Freq: Status: Active Protocol: Document 01/24/19 09:00 [facility] (Rec: 01/26/19 08:17 [facility] [id number]) Therapeutic Exercises Supine Exercises 4 Supine Exercise Name roll out with t band Resistance #3 Comments 10 2 Supine Exercise Name ball squeeze Comments 10 1 Supine Exercise Name EMG biofeedback with pelvic floor long holds Side bilateral Comments Neuromuscular education on pelvic floor faciliation Other Exercises 2 Other Exercise Name UE flex with TrA and PF stabilization Reps/Minutes 10 1 Other Exercise Name quadruped TrA/ PF contract Neuro Re-Education Treatment Other Activities 2 Details eccentric control in quadraped and supine Comments TA and pelvic floor 1 Details NMES for pelvic floor recruitment PT-OP-T Assessment and Plan Start: 12/31/18 12:44 Freq: Status: Active Protocol: Document 01/24/19 09:00 [facility] (Rec: 01/24/19 09:29 AMB [id number]) Physical Therapy Assessment Assessment Summary Assessment Average 9.5, max 20 on sEMG today, pt feeling like NMES is helpful, but maybe not helpful enough to rent since she does feel like she's getting a better contraction. She will continue to consider . Physical Therapy Plan Next Visit Focus/Plan Next Note Type Treatment Note Next Visit Plan Try to progress into stabilization with movevement and progress into more functional postures (standing vs sitting) as tolerated
--- NOTE | 2019-02-08 16:11 | PT.OTN ---
Current Diagnoses Stress incontinence (female) (male) (02/08/19) Encounter for routine follow-up (02/08/19) Physical Therapy Treatment Note PT-OP-A Visit Information Start: 12/31/18 12:44 Freq: Status: Active Protocol: Document 02/08/19 09:45 [facility] (Rec: 02/08/19 13:11 AMB [id number]) Out-Patient Physical Therapy Visit Information Visit Information Visit Type Treatment Note Visit Start Time 09:00 Visit Stop Time 09:45 Total Visit Minutes 45 Visit Number 4 PT-OP-B Current Condition Start: 12/31/18 12:44 Freq: Status: Active Protocol: Document 12/28/18 15:15 [facility] (Rec: 01/02/19 18:13 [facility] [id number]) Current Condition History of Current Condition Onset Date summer Current Complaints pelvic floor weakness with urinary stress incontinence History of Current Condition 38 year old female who began experiencing increased symptms of urinary stress incontinence after her 1st child was born in 2015. She did PT after this time and notes improvement in her symptoms. She is now 3 months from her second vaginal delivery and is noting increased symptoms of leakage with running, jumping, and sneezing. She would like help strengthening her pelvic floor in this period to decrease symptoms and jermaine able to return to exercise activities and running. Treatment Goals Patient/Caregiver Goals Goals include being able to return to exercise activities and running without leakage, PT-OP-C Subjective Start: 12/31/18 12:44 Freq: Status: Active Protocol: Document 02/08/19 09:45 [facility] (Rec: 02/08/19 13:11 AMB [id number]) OP-PT Subjective Patient Comments Patient Comments Christi reports she tried jumping a little this morning and didn't leak. She has not tried return to running. PT-OP-I Pelvic Floor Start: 12/31/18 12:44 Freq: Status: Active Protocol: Document 12/28/18 15:15 [facility] (Rec: 01/02/19 18:13 [facility] [id number]) Pelvic Floor Assessment Urine Pelvic Floor Surgery No Other Urinary Symptoms urinary leakage with cough, sneeze, and jump Leakage Size Medium Leakage Cause Cough Exercise Lifting Sneeze Other Leakage Causes running Leaks Per Day 1 leak per week Voiding Frequency 2-3 hours Nocturia 1xm Urine Pad Type Panty Liner Pelvic Clock Pelvic Clock 12-3 Atrophy Pelvic Clock 3-6 Atrophy Pelvic Clock 6-9 Atrophy Pelvic Clock 9-12 Atrophy Pelvic Clock Other left lateral wall shows the most weakness SEMG (uV) Baseline 0 10 Second Contraction 7.1 Recruitment Pattern Fair Relaxation Fair Holding Fair Stability of Hold Fair SEMG Stability of Rest Good Contraction Ability Voluntary Contraction Weak Voluntary Relaxation Weak Manual Muscle Testing Left 1 Manual Muscle Testing Right 2 Manual Muscle Testing Anterior 2 Manual Muscle Testing Posterior 3 Muscle Endurance (Seconds) 5 PT-OP-Q Treatments Start: 12/31/18 12:44 Freq: Status: Active Protocol: Document 02/08/19 09:45 [facility] (Rec: 02/08/19 13:11 AMB [id number]) Therapeutic Exercises Standing Exercises 2 Standing Exercise Name squats Reps/Minutes 10 1 Standing Exercise Name lunges Reps/Minutes 10 Other Exercises 3 Other Exercise Name quadruped LE ext Comments small ROM 2 Other Exercise Name UE flex with TrA and PF stabilization Reps/Minutes 10 1 Other Exercise Name quadruped TrA/ PF contract Neuro Re-Education Treatment Other Activities 2 Details sEMG in supine quick flicks and long holds focus on good but slow relax. Comments pelvic floor PT-OP-T Assessment and Plan Start: 12/31/18 12:44 Freq: Status: Active Protocol: Document 02/08/19 09:45 [facility] (Rec: 02/08/19 13:11 AMB [id number]) Physical Therapy Assessment Assessment Summary Assessment max 23 on sEMG today. better control in supine with long holds, more difficult in quadruped and standing. Physical Therapy Plan Next Visit Focus/Plan Next Note Type Treatment Note Next Visit Plan Try to progress into stabilization with movevement and progress into more functional postures (standing vs sitting) as tolerated
--- NOTE | 2019-02-26 07:16 | PT.OTN ---
Current Diagnoses Stress incontinence (female) (male) (02/22/19) Encounter for routine follow-up (02/22/19) Physical Therapy Treatment Note PT-OP-A Visit Information Start: 12/31/18 12:44 Freq: Status: Active Protocol: Document 02/22/19 15:15 [facility] (Rec: 02/26/19 07:15 [facility] [id number]) Out-Patient Physical Therapy Visit Information Visit Information Visit Type Treatment Note Visit Start Time 15:15 Visit Stop Time 16:00 Total Visit Minutes 45 Visit Number 5 PT-OP-B Current Condition Start: 12/31/18 12:44 Freq: Status: Active Protocol: Document 12/28/18 15:15 [facility] (Rec: 01/02/19 18:13 [facility] [id number]) Current Condition History of Current Condition Onset Date summer Current Complaints pelvic floor weakness with urinary stress incontinence History of Current Condition 38 year old female who began experiencing increased symptms of urinary stress incontinence after her 1st child was born in 2015. She did PT after this time and notes improvement in her symptoms. She is now 3 months from her second vaginal delivery and is noting increased symptoms of leakage with running, jumping, and sneezing. She would like help strengthening her pelvic floor in this period to decrease symptoms and jermaine able to return to exercise activities and running. Treatment Goals Patient/Caregiver Goals Goals include being able to return to exercise activities and running without leakage, PT-OP-C Subjective Start: 12/31/18 12:44 Freq: Status: Active Protocol: Document 02/22/19 15:15 [facility] (Rec: 02/26/19 07:15 [facility] [email or web address]) OP-PT Subjective Patient Comments Patient Comments Christi reports she is doing better overall and states leaking hasn't been a problem. She hasn't doen a lot of experimenting of jumping on the trampoline. She reports the most difficult position to find her pelvic floor in is quadruped. PT-OP-I Pelvic Floor Start: 12/31/18 12:44 Freq: Status: Active Protocol: Document 12/28/18 15:15 [facility] (Rec: 01/02/19 18:13 [facility] [id number]) Pelvic Floor Assessment Urine Pelvic Floor Surgery No Other Urinary Symptoms urinary leakage with cough, sneeze, and jump Leakage Size Medium Leakage Cause Cough Exercise Lifting Sneeze Other Leakage Causes running Leaks Per Day 1 leak per week Voiding Frequency 2-3 hours Nocturia 1xm Urine Pad Type Panty Liner Pelvic Clock Pelvic Clock 12-3 Atrophy Pelvic Clock 3-6 Atrophy Pelvic Clock 6-9 Atrophy Pelvic Clock 9-12 Atrophy Pelvic Clock Other left lateral wall shows the most weakness SEMG (uV) Baseline 0 10 Second Contraction 7.1 Recruitment Pattern Fair Relaxation Fair Holding Fair Stability of Hold Fair SEMG Stability of Rest Good Contraction Ability Voluntary Contraction Weak Voluntary Relaxation Weak Manual Muscle Testing Left 1 Manual Muscle Testing Right 2 Manual Muscle Testing Anterior 2 Manual Muscle Testing Posterior 3 Muscle Endurance (Seconds) 5 PT-OP-Q Treatments Start: 12/31/18 12:44 Freq: Status: Active Protocol: Document 02/22/19 15:15 [facility] (Rec: 02/26/19 07:15 [facility] [email or web address]) Therapeutic Exercises Supine Exercises 1 Supine Exercise Name pelvic floor long holds Side bilateral Reps/Minutes 10 seconds on 10 seconds off Comments average 11.6 uv with max of 21 .2 Sitting Exercises 2 Sitting Exercise Name seated on ball small bounces with pelvic floor activation on the way up 1 Sitting Exercise Name seated on ball core activiation with OA. OL lifts Reps/Minutes x 10 Standing Exercises 4 Standing Exercise Name single leg squats with Pelvic floor activation Reps/Minutes 2 x 10 each Comments forward, side, back 3 Standing Exercise Name sidesteps with theraband and mini squats Reps/Minutes x 2 min 2 Standing Exercise Name squats Reps/Minutes 10 Other Exercises 3 Other Exercise Name quadruped LE ext Comments small ROM 2 Other Exercise Name UE flex with TrA and PF stabilization Reps/Minutes 10 1 Other Exercise Name quadruped TrA/ PF contract Self-Care/Home Management Treatment Education Patient Education Home Exercise Program PT-OP-T Assessment and Plan Start: 12/31/18 12:44 Freq: Status: Active Protocol: Document 02/22/19 15:15 [facility] (Rec: 02/26/19 07:15 [facility] [email or web address]) Physical Therapy Assessment Goals Four Impairment guarding of the posterior wall of the levator ani and difficulty relaxing Short Term Goal (STG) Decreased guarding of the posterior wall of the levator ani and Christi is able to fully relax her pelvic floor in 5 seconds or less following a contraction. Montessori Paraprofessional Goal (LTG) GOOD PROGRESS as resting tone was much lower today on EMG BIOFEEDBACK Three Impairment Decreased endurance of the pelvic floor Residential Goal (LTG) Christi is able to sustain a pelvic floor contraction in supine for 10 seconds or greater in supine and in standing GOAL MET FOR SUPINE ENDURANCE HOLDS< WORKING NOW ON STANDING ENDURANCE LTG Duration 8 weeks Two Impairment Weakness of the levator ani Montessori Paraprofessional Goal (LTG) Improve strength of the levator ani from 2/5 MMT to 4/ 5 MMT or better for improved support of the bladder GOOD PROGRESS LTG Duration 8 weeks + One Impairment Urinary stress incontinence Short Term Goal (STG) Christi is not leaking with cough, sneeze, or laugh GOAL MET STG Duration 4-6 weeks Montessori Paraprofessional Goal (LTG) Christi is able to return to light running without leakage WORKING TOWARDS DYNAMIC UPRIGHT STRENGTHENING LTG Duration 8 weeks + Progress Towards Goals Progress Towards Goals Progressing Toward Goals Progress Comments Christi has been seen for 5 visits in PT She is responding well to PT and reports that leaking has decreased and with general activities is no longer a issue. We have started to progress her to more upright positioning and dynamic activities to strengthen her pelvic floor. Her average on EMG biofeedback has increased to 11.6 with max of 21.2. It was 7.1 uv with max of 13.2. Christi still has difficulty fully keeping her gluteals relaxed with standing pelvic floor facilitation and quadruped positions are difficult to activate her pelvic floor in. She would benefit from continued PT . Physical Therapy Plan Frequency and Duration Frequency of Treatment 1x/Week Duration of Treatment 8 weeks Plan of Care Start Date 02/22/19 Plan of Care End Date 04/19/19 Therapeutic Interventions Therapeutic Interventions Home Exercise Program Neuromuscular Re-education Patient/Caregiver Education Self-Care/Home Management Therapeutic Exercises Modalities Biofeedback Electric Stimulation Next Visit Focus/Plan Next Note Type Progress Note Next Visit Plan Continue to progress pelvic floor activation and strength in upright positions and functional positions. Pt's goal is to return to running so beginning to test running would be good.
--- NOTE | 2019-02-26 07:16 | PT.OPPOC ---
Current Diagnoses Stress incontinence (female) (male) (02/22/19) Encounter for routine follow-up (02/22/19) Provider Visit Care Team Role Provider Type Ginger Rodriguez MD Attending Provider Physician Primary Care Provider Specialty: Family Practice Address: [address] [place] [address], [id number] Email: Plan Of Care PT-OP-T Assessment and Plan Start: 12/31/18 12:44 Freq: Status: Active Protocol: Document 02/22/19 15:15 [facility] (Rec: 02/26/19 07:15 [facility] [email or web address]) Physical Therapy Assessment Goals Four Impairment guarding of the posterior wall of the levator ani and difficulty relaxing Short Term Goal (STG) Decreased guarding of the posterior wall of the levator ani and Christi is able to fully relax her pelvic floor in 5 seconds or less following a contraction. Retirement Goal (LTG) GOOD PROGRESS as resting tone was much lower today on EMG BIOFEEDBACK Three Impairment Decreased endurance of the pelvic floor Retirement Goal (LTG) Christi is able to sustain a pelvic floor contraction in supine for 10 seconds or greater in supine and in standing GOAL MET FOR SUPINE ENDURANCE HOLDS< WORKING NOW ON STANDING ENDURANCE LTG Duration 8 weeks Two Impairment Weakness of the levator ani Retirement Goal (LTG) Improve strength of the levator ani from 2/5 MMT to 4/ 5 MMT or better for improved support of the bladder GOOD PROGRESS LTG Duration 8 weeks + One Impairment Urinary stress incontinence Short Term Goal (STG) Christi is not leaking with cough, sneeze, or laugh GOAL MET STG Duration 4-6 weeks Wool Handler Goal (LTG) Christi is able to return to light running without leakage WORKING TOWARDS DYNAMIC UPRIGHT STRENGTHENING LTG Duration 8 weeks + Progress Towards Goals Progress Towards Goals Progressing Toward Goals Progress Comments Christi has been seen for 5 visits in PT She is responding well to PT and reports that leaking has decreased and with general activities is no longer a issue. We have started to progress her to more upright positioning and dynamic activities to strengthen her pelvic floor. Her average on EMG biofeedback has increased to 11.6 with max of 21.2. It was 7.1 uv with max of 13.2. Christi still has difficulty fully keeping her gluteals relaxed with standing pelvic floor facilitation and quadruped positions are difficult to activate her pelvic floor in. She would benefit from continued PT . Physical Therapy Plan Frequency and Duration Frequency of Treatment 1x/Week Duration of Treatment 8 weeks Plan of Care Start Date 02/22/19 Plan of Care End Date 04/19/19 Therapeutic Interventions Therapeutic Interventions Home Exercise Program Neuromuscular Re-education Patient/Caregiver Education Self-Care/Home Management Therapeutic Exercises Modalities Biofeedback Electric Stimulation Next Visit Focus/Plan Next Note Type Progress Note Next Visit Plan Continue to progress pelvic floor activation and strength in upright positions and functional positions. Pt's goal is to return to running so beginning to test running would be good. Plan of Care Dates Plan of Care Start Date 02/22/19 Plan of Care End Date 04/19/19 Please Sign and Return: I have reviewed this Plan of Care and certify that the skilled therapy services above are required to meet the patient?s needs. Physician Signature Date Printed Name and Credentials Clinical Instructor Signature Printed Name and Credentials
--- NOTE | 2019-03-22 11:23 | PT.OTN ---
Current Diagnoses Stress incontinence (female) (male) (03/22/19) Encounter for routine follow-up (03/22/19) Physical Therapy Treatment Note PT-OP-A Visit Information Start: 12/31/18 12:44 Freq: Status: Active Protocol: Document 03/22/19 08:15 [facility] (Rec: 03/22/19 12:04 [facility] [email or web address]) Out-Patient Physical Therapy Visit Information Visit Information Visit Type Treatment Note Visit Start Time 08:15 Visit Stop Time 08:55 Total Visit Minutes 40 Visit Number 6 PT-OP-B Current Condition Start: 12/31/18 12:44 Freq: Status: Active Protocol: Document 12/28/18 15:15 [facility] (Rec: 01/02/19 18:13 [facility] [id number]) Current Condition History of Current Condition Onset Date summer Current Complaints pelvic floor weakness with urinary stress incontinence History of Current Condition 38 year old female who began experiencing increased symptms of urinary stress incontinence after her 1st child was born in 2015. She did PT after this time and notes improvement in her symptoms. She is now 3 months from her second vaginal delivery and is noting increased symptoms of leakage with running, jumping, and sneezing. She would like help strengthening her pelvic floor in this period to decrease symptoms and jermaine able to return to exercise activities and running. Treatment Goals Patient/Caregiver Goals Goals include being able to return to exercise activities and running without leakage, PT-OP-C Subjective Start: 12/31/18 12:44 Freq: Status: Active Protocol: Document 03/22/19 08:15 [facility] (Rec: 03/22/19 12:04 [facility] [email or web address]) OP-PT Subjective Patient Comments Patient Comments Christi reports she has had no leaking, she has been working in quadruped as that is still challenging. PT-OP-I Pelvic Floor Start: 12/31/18 12:44 Freq: Status: Active Protocol: Document 12/28/18 15:15 [facility] (Rec: 01/02/19 18:13 [facility] [id number]) Pelvic Floor Assessment Urine Pelvic Floor Surgery No Other Urinary Symptoms urinary leakage with cough, sneeze, and jump Leakage Size Medium Leakage Cause Cough,Exercise,Lifting,Sneeze Other Leakage Causes running Leaks Per Day 1 leak per week Voiding Frequency 2-3 hours Nocturia 1xm Urine Pad Type Panty Liner Pelvic Clock Pelvic Clock 12-3 Atrophy Pelvic Clock 3-6 Atrophy Pelvic Clock 6-9 Atrophy Pelvic Clock 9-12 Atrophy Pelvic Clock Other left lateral wall shows the most weakness SEMG (uV) Baseline 0 10 Second Contraction 7.1 Recruitment Pattern Fair Relaxation Fair Holding Fair Stability of Hold Fair SEMG Stability of Rest Good Contraction Ability Voluntary Contraction Weak Voluntary Relaxation Weak Manual Muscle Testing Left 1 Manual Muscle Testing Right 2 Manual Muscle Testing Anterior 2 Manual Muscle Testing Posterior 3 Muscle Endurance (Seconds) 5 PT-OP-Q Treatments Start: 12/31/18 12:44 Freq: Status: Active Protocol: Document 03/22/19 08:15 [facility] (Rec: 03/24/19 11:21 [facility] [email or web address]) Therapeutic Exercises Supine Exercises 1 Supine Exercise Name pelvic floor long holds Side bilateral Reps/Minutes 10 seconds on 10 seconds off Sitting Exercises 1 Sitting Exercise Name seated on ball core activiation with OA. OL lifts Reps/Minutes x 10 Comments with pelvic tilts Standing Exercises 2 Standing Exercise Name squats Reps/Minutes 10 Other Exercises 3 Other Exercise Name quadruped LE ext Comments small ROM 2 Other Exercise Name UE flex with TrA and PF stabilization Reps/Minutes 10 1 Other Exercise Name quadruped TrA/ PF contract PT-OP-T Assessment and Plan Start: 12/31/18 12:44 Freq: Status: Active Protocol: Document 03/22/19 08:15 [facility] (Rec: 03/24/19 11:21 [facility] [email or web address]) Physical Therapy Assessment Goals Four Impairment guarding of the posterior wall of the levator ani and difficulty relaxing Short Term Goal (STG) Decreased guarding of the posterior wall of the levator ani and Christi is able to fully relax her pelvic floor in 5 seconds or less following a contraction. Corrosion Engineer Goal (LTG) GOOD PROGRESS as resting tone was much lower today on EMG BIOFEEDBACK Three Impairment Decreased endurance of the pelvic floor Corrosion Engineer Goal (LTG) Christi is able to sustain a pelvic floor contraction in supine for 10 seconds or greater in supine and in standing LTG Duration MET Two Impairment Weakness of the levator ani Corrosion Engineer Goal (LTG) Improve strength of the levator ani from 2/5 MMT to 4/ 5 MMT or better for improved support of the bladder GOOD PROGRESS LTG Duration MET One Impairment Urinary stress incontinence Short Term Goal (STG) Christi is not leaking with cough, sneeze, or laugh STG Duration MET Mcfp Goal (LTG) Christi is able to return to light running without leakage WORKING TOWARDS DYNAMIC UPRIGHT STRENGTHENING LTG Duration 8 weeks + Assessment Summary Assessment Christi feels ready to continue to work on her pelvic floor strength independently. She is not having any symptoms of leaking and is confident in her ability to tell when she is osbaldo her pelvic floor and when she has lost the contraction. She is able to know what positions are more challenging for her and feels like she can progres independently at this time.
== END 2019-04-06 08:15 | disposition home or self-care (01) ==
LOC: PHYS 08:15
PROVIDERS: PCP Family Medicine; Visit Provider Family Medicine
DX: Z39.2 Encounter for routine postpartum follow-up (principal); N39.3 Stress incontinence (female) (male)
CPT/HCPCS: 97110; 97112; 97161

== ENCOUNTER → 2019-08-16 09:09 | Outpatient (CLI) | payer OTHER, SELFPAY ==
--- NOTE | 2019-08-16 | DI.RAD.S_ITS ---
PROCEDURE: XR KNEE LT 3V INDICATIONS: LEFT KNEE PAIN TECHNIQUE: 3 views of the knee were acquired. COMPARISON: None. FINDINGS: Bones: No acute fractures or dislocations. Chronic fragmentation can be seen at the tibial tubercle. No suspicious bony lesions. The knee joint spaces are well-preserved. Soft tissues: No significant joint effusion. No suspicious soft tissue calcifications. IMPRESSION: No acute plain film abnormality is seen. 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 If it would be helpful for clinical management decision making, please consider a dedicated knee MRI for further evaluation (assuming that there is no contraindication). Dictated by: Tre Robb M.D. on 08/16/2019 at 8:44 Approved by: Tre Robb M.D. on 08/16/2019 at 8:46
== END ==
PROVIDERS: PCP Family Medicine; Visit Provider Family Medicine
DX: M25.562 Pain in left knee (principal)
CPT/HCPCS: 73562

== ENCOUNTER → 2020-01-05 08:42 | Outpatient (CLI) | payer OTHER, SELFPAY ==
--- NOTE | 2020-01-05 | DI.MRI.S_ITS ---
PROCEDURE: MR KNEE LT WO CON INDICATIONS: PREPATELLAR BURSITIS, LT KNEE TECHNIQUE: Noncontrast sagittal PD fast spin echo and T2 fast spin echo with fat saturation, sagittal 3-D FLASH with fat saturation; coronal T1 spin echo and PD fast spin echo with fat saturation, and axial PD fast spin echo with fat saturation through the knee. COMPARISON: [facility], CR, XR KNEE LT 3V, 08/16/2019, 9:06. FINDINGS: Image quality: Excellent. Menisci: The medial and lateral menisci demonstrate normal morphology and internal signal. The meniscal root ligaments appear intact. Cruciate ligaments: The anterior and posterior cruciate ligaments appear intact. Medial structures: The medial collateral ligament appears intact. The semimembranosus tendon insertions and meniscocapsular junction appear intact. Visualized portions of the pes anserinus tendons appear intact without associated bursal fluid collections. Lateral structures: The lateral collateral ligament, long and short heads of the biceps femoris tendon appear intact. The popliteus tendon appears intact. Iliotibial band appears normal. Anterior structures: The quadriceps and patellar tendons appear intact. There is mild peritendinous edema along the distal patellar tendon. There is a large ossicle in the distal patellar tendon measuring up to 1.8 cm adjacent to the tibial tuberosity which may represent sequelae of Longbranch Schlatter's or prior avulsion injury. There is edema within the ossicle and the adjacent tibial tuberosity. A moderate amount of fluid is demonstrated within the deep infrapatellar bursa with associated edema. There is a small filling defect within the fluid measuring up to 0.5 cm compatible with a small ossicle. Patellar alignment is normal. No femoral trochlear and dysplasia or ventral trochlear prominence. No prepatellar bursal fluid collection. Bones and cartilage: No bone marrow contusions or fractures. The cartilage of the medial and lateral femorotibial compartments, as well as the patellofemoral compartment, appears normal in thickness. Joint space: There is physiologic knee joint fluid. No Hilliard's cyst. Normal appearing synovial plicae are incidentally noted. IMPRESSION: 1. Moderate amount of fluid and edema in the deep infrapatellar bursa compatible with bursitis. 2. Large ossicle in the distal patellar tendon adjacent to the tibial tuberosity suggesting sequelae of Longbranch-Schlatter's disease or prior avulsion fracture. Associated edema within the ossicle and adjacent tibia may represent reactive changes secondary to adjacent bursitis, stress reaction, or a superimposed acute avulsion injury. Dictated by: Sebastian Merino M.D. on 01/07/2020 at 12:17 Approved by: Sebastian Merino M.D. on 01/07/2020 at 12:37
== END ==
PROVIDERS: PCP Family Medicine; Referring Provider Family Medicine; Visit Provider Family Medicine
DX: M70.42 Prepatellar bursitis, left knee (principal)
CPT/HCPCS: 73721

== ENCOUNTER → 2020-04-29 13:50 | Outpatient (CLI) | payer OTHER, SELFPAY ==
[2020-04-30 20:02] LABS: COVID19 Sendout Not Detected (Not Detect)
== END ==
PROVIDERS: PCP Family Medicine; Visit Provider Physician Assistant
DX: Z11.59 Encounter for screening for other viral diseases (principal)
CPT/HCPCS: 87635

== ENCOUNTER → 2020-04-29 19:41 | Outpatient (CLI) | payer OTHER, SELFPAY | PROVIDERS: PCP Family Medicine; Referring Provider Internal Medicine; Visit Provider Internal Medicine | DX: Z23 Encounter for immunization (principal) | CPT/HCPCS: 90471; 90686 ==

== ENCOUNTER → 2020-07-30 14:53 | Outpatient (CLI) | payer OTHER, SELFPAY ==
[2020-07-30] MEDS: COVID-19 VACC(MODERNA-1)/PF 100 MCG/0.5 ML VIAL IM (14:57)
== END ==
PROVIDERS: PCP Family Medicine; Visit Provider Internal Medicine
DX: Z23 Encounter for immunization (principal)
CPT/HCPCS: 0011A; 91301

== ENCOUNTER → 2020-08-26 12:05 | Outpatient (CLI) | payer OTHER, SELFPAY ==
[2020-08-26] MEDS: COVID-19 VACC #2, MRNA(MOD) 100 MCG/0.5 ML VIAL IM (12:11)
== END ==
PROVIDERS: PCP Family Medicine; Visit Provider Internal Medicine
DX: Z23 Encounter for immunization (principal)
CPT/HCPCS: 0012A; 91301

== ENCOUNTER → 2021-05-12 | Outpatient (CLI) | payer OTHER, SELFPAY | PROVIDERS: PCP Family Medicine; Referring Provider Internal Medicine; Visit Provider Internal Medicine | DX: Z23 Encounter for immunization (principal) | CPT/HCPCS: 90471; 90686 ==

== ENCOUNTER → 2021-05-29 12:25 | Outpatient (CLI) | payer OTHER, SELFPAY ==
[2021-05-29] MEDS: COVID-19 VACC #3, MRNA(MOD) 50 MCG/0.25 ML VIAL IM (12:32)
== END ==
PROVIDERS: PCP Family Medicine; Visit Provider Internal Medicine
DX: Z23 Encounter for immunization (principal)
CPT/HCPCS: 0013A; 91301

== ENCOUNTER 2022-03-29 08:25 | Emergency (ER) | payer OTHER, SELFPAY ==
[2022-03-29 08:32] VITALS: BP 132/90; PULSE 70; RESP 16; TEMP 36.7; O2SAT 97; BMI 23.3
[2022-03-29] MEDS: FLUORESCEIN 1 MG STRIP EYE-RIGHT (08:39)
[2022-03-29] MEDS: PROPARACAINE 0.5% OPHTH SOL 1 DROPS EYE-RIGHT (08:39)
--- NOTE | 2022-03-29 09:10 | ED.EYEPROB ---
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 She says she felt a little mild irritation yesterday but then overnight it was bothering her quite a bit and this morning the redness and irritation in her right eye persist. She has a mild foreign body sensation. She is not aware of any specific foreign body that may have injured her eye. She does wear contact lenses but has not done so in the past 7 days. She has no other illness or injury to report today. Related Data Home Medications Medication Instructions Recorded Confirmed levothyroxine 200 mcg capsule 200 mcg PO DAILY 09/25/18 09/25/18 Previous Rx's Medication Instructions Recorded doxycycline hyclate 100 mg tablet 100 mg PO BID #20 tabs 03/12/19 erythromycin 5 mg/gram (0.5 %) eye 0.5 inch EYE-RIGHT TID 5 days #3.5 03/29/22 ointment grams Allergies Allergy/AdvReac Type Severity Reaction Status Date / Time No Known Drug Allergies Allergy Verified 03/12/19 21:15 Review of Systems Review of Systems Narrative: Complete review of systems is negative other than as noted above. Patient History Social History Smoking Status: Never smoker Smoking Status: Never smoker alcohol intake frequency: 0-2 drinks per day Substance Use Type: does not use Exam Narrative Exam Narrative: GENERAL: Alert, cooperative and in no distress. HEAD: Atraumatic. Normocephalic. EYES: Sclera are clear without icterus. Extraocular movements are full. ENT: No rhinorrhea NECK: No visible abnormality RESPIRATORY: No respiratory distress GASTROINTESTINAL: Nondistended EXTREMITIES: No obvious trauma. NEURO: Nonfocal, normal speech SKIN: No rash or erythema of visible areas PSYCH: Normally oriented. Normal range of affect. Appropriate behavior Initial Vital Signs Initial Vital Signs: Vital Signs Temperature 98.1 F 03/29/22 08:32 Pulse Rate 70 03/29/22 08:32 Respiratory Rate 16 03/29/22 08:32 Blood Pressure 132/90 03/29/22 08:32 Pulse Oximetry 97 03/29/22 08:32 Oxygen Delivery Method 03/29/22 08:32 Eyes Conjunctivae: conjunctival abnormality (Injection) right Cornea: fluorescein used Other: Slit-lamp exam reveals no flare, the anterior chamber is quiet. There is an obvious mid visual axis corneal abrasion with minimal depth but about 3 mm in the vertical dimension and 2 mm in the lateral dimension. Course Orders Ordered: Discontinued Medications Fluorescein Sodium (Fluorescein 1 Mg Strip) 1 mg EYE-RIGHT NOW ONE Stop: 03/29/22 08:28 Last Admin: 03/29/22 08:39 Dose: 1 mg Documented By: CTS Proparacaine HCl (Proparacaine 0.5% Ophth Yanique) 1 drops EYE-RIGHT NOW ONE Stop: 03/29/22 08:28 Last Admin: 03/29/22 08:39 Dose: 2 drop Documented By: CTS Vital Signs Vital signs: Vital Signs - 8 hr 03/29/22 08:32 Temperature 98.1 F Pulse Rate 70 Respiratory Rate 16 Blood Pressure 132/90 Pulse Oximetry 97 Oxygen Delivery Method Room Air MDM - Eye Problem MDM Narrative Medical decision making narrative: Tetanus immunization is up-to-date. Corneal abrasion present. Antibiotic ointment prescribed. Careful return precautions given. Follow-up recommended. Discharge Plan Departure Patient Disposition: Home Clinical Impression: Corneal abrasion Activity Restrictions/Additional Instructions: You have a 2 x 3 mm mid corneal abrasion. The depth is not very deep. No other abnormality seen. I recommend antibiotic ointment to the eye 3 times a day. Tylenol or ibuprofen as needed for pain. Follow-up with your eye doctor in 2 or 3 days if your eye and vision are not back to normal. Prescriptions: New erythromycin 5 mg/gram (0.5 %) ointment 0.5 inch EYE-RIGHT TID 5 Days Qty: 3.5 0RF No Action levothyroxine 200 mcg Capsule 200 mcg PO DAILY doxycycline hyclate 100 mg tablet 100 mg PO BID Qty: 20 0RF Referrals: Ginger Rodriguez MD [Primary Care Provider] -
== END 2022-03-29 09:18 | disposition home or self-care (01) ==
PROVIDERS: Emergency Provider Family Medicine Addiction Medicine; PCP Family Medicine
DX: S05.01XA Injury of conjunctiva and corneal abrasion without foreign body, right eye, initial encounter (principal)
CPT/HCPCS: 99282

== ENCOUNTER → 2022-07-20 16:14 | Outpatient (CLI) | payer OTHER, SELFPAY ==
--- NOTE | 2022-07-20 16:17 | DI.MRI.S_ITS ---
PROCEDURE: MR CERVICAL SPINE WO CON INDICATIONS: Radiculopathy, cervical region TECHNIQUE: Noncontrast sagittal T1 spin echo and T2 fast spin echo, sagittal STIR, foraminal oblique sagittal T2 fast spin echo, and axial gradient echo or T2 fast spin echo through the cervical spine. COMPARISON: None. FINDINGS: Image quality: This examination is limited by involuntary motion artifact. Alignment and Curvature: There is straightening of the normal cervical lordosis. No focal AP alignment abnormality is seen. Bone Marrow: Marrow demonstrates normal overall signal. Spinal Cord: Visualized spinal cord has normal size and signal. No cerebellar tonsillar herniation. Paraspinous Soft Tissues: No paravertebral masses. Prevertebral soft tissues are normal in thickness. C2-C3: The disc height and disk signal are well-preserved. No significant neural foraminal or central canal narrowing can be seen. C3-C4: Mild loss of disc height is seen. Loss of disc signal is seen. A mild degree of generalized disc osteophyte complex is seen. There is a central disc osteophyte protrusion seen, as on series 3, image 19. Mild facet joint hypertrophy is seen. There is moderate to severe left-sided and moderate right-sided neural foraminal narrowing. Moderate central canal narrowing is seen. There is associated mass effect upon the ventral spinal cord. C4-C5: The disc height and disk signal are well-preserved. Mild to moderate disc osteophyte complex is seen. Mild facet joint hypertrophy is seen. At least moderate bilateral neural foraminal narrowing can be seen, right worse than left. Mild to moderate central canal narrowing is seen, with mild mass effect upon the ventral spinal cord. C5-C6: Mild loss of disc height is seen. Loss of disc signal is seen. Moderate disc osteophyte complex is seen, with a central disc osteophyte protrusion. Moderate facet joint hypertrophy is seen. There is moderate to severe right-sided and at least moderate left-sided neural foraminal narrowing. Moderate central canal narrowing is seen. There is associated mass effect upon the ventral spinal cord. C6-C7: Mild loss of disc height is seen. Loss of disc signal is seen. Moderate generalized disc osteophyte complex is seen. Moderate facet joint hypertrophy is seen. Moderate bilateral neural foraminal narrowing can be seen, right worse than left. Mild to moderate central canal narrowing is seen. C7-T1: Level within normal limits. IMPRESSION: Multiple levels of premature cervical spine degenerative change can be seen, which are overall worst at C3-C4 and C5-C6. Dictated by: Tre Robb M.D. on 07/20/2022 at 17:05 Approved by: Tre Robb M.D. on 07/20/2022 at 17:08
== END ==
PROVIDERS: PCP Family Medicine; Referring Provider Family Medicine; Visit Provider Family Medicine
DX: M47.22 Other spondylosis with radiculopathy, cervical region (principal)
CPT/HCPCS: 72141

== ENCOUNTER → 2022-07-21 09:05 | Outpatient (CLI) | payer OTHER, SELFPAY ==
--- NOTE | 2022-07-21 | DI.RAD.S_ITS ---
PROCEDURE: XR CERVICAL SPINE 2V OR 3V INDICATIONS: Radiculopathy, cervical region TECHNIQUE: 3 view(s) of the cervical spine were acquired. COMPARISON: None. FINDINGS: Bones: No fractures or dislocations to the C7-T1 level. The lateral masses of C1 appear intact on the odontoid view. No suspicious bony lesions. Soft tissues: No prevertebral soft tissue swelling. IMPRESSION: Unremarkable radiographic examination of cervical spine. Dictated by: Skinny Cole M.D. on 07/21/2022 at 10:09 Approved by: Skinny Cole M.D. on 07/21/2022 at 10:09
== END ==
PROVIDERS: PCP Family Medicine; Referring Provider Family Medicine; Visit Provider Family Medicine
DX: M54.12 Radiculopathy, cervical region (principal)
CPT/HCPCS: 72040